=== PATIENT | female | born 1945 | race Caucasian/White ===

== ENCOUNTER 2016-08-20 13:52 | Inpatient (IN) | payer MEDICARE, OTHER ==
[~2016-08-20] VITALS: Ht 162.5 cm; Wt 93.4 kg
--- NOTE | ~2016-08-20 | CON ---
[place], [place] REPORT OF CONSULTATION NAME: RAMON VACA [facility] #: [id number] UNIT #: [id number] ROOM: 426 DOCTOR: WILLAM GIBSON DPM BIRTHDATE: [birth year] DOS: 08/21/2016 SUBJECTIVE: The patient presents a 71-year-old female with chief complaint of an ulcer to the medial left heel. The patient had been seen by Dr. Perez previously. The patient has had also seen the wound care center previously, has had the ulceration for an extended amount of time. PAST MEDICAL HISTORY: Type 2 diabetes, essential hypertension, hyperlipidemia. PAST SURGICAL HISTORY: Vascular Surgery, history of cholecystectomy, hysterectomy, tubal ligation. SOCIAL HISTORY: Nonsmoker. Denies alcohol or illicit drug use. FAMILY HISTORY: Mother of metastatic bone cancer at age 62. Father at age 82 of vascular disease. ALLERGIES: CEPHALEXIN. PHYSICAL EXAMINATION: EXTREMITIES: Lower extremity examination: Pedal pulses diminished bilateral lower extremity. Decreased hair growth bilateral. Decreased epicritic sensations. There is painful ulceration to the medial left ankle and heel. There are no signs of acute abscess. The ulceration is full thickness through subcutaneous tissue level. There is no sign of sinus tract or abscess identified. DIAGNOSTIC DATA: Radiographs were unremarkable for osseous erosion. ASSESSMENT: Ulceration, medial left ankle and heel, diabetes type 2, peripheral vascular disease, venous insufficiency. PLAN: Evaluation and management, discussed the case with the patient and her family member who ordered venous Doppler of the lower extremity along with arterial Doppler of both lower extremities. Ordered Bactroban dressing to be applied daily and we will reassess the patient tomorrow for followup. WILLAM GIBSON DPM CM:CONSTR:REPORT OF CONSULTATION 1223 08/22/16 0034 interface
--- NOTE | ~2016-08-20 | PR ---
[place], [place] PROGRESS NOTE NAME: RAMON VACA [facility] #: [id number] UNIT #: [id number] ROOM: 426 DOCTOR: TAY DELATORRE DPM BIRTHDATE: [birth year] DOS: 08/22/2016 SUBJECTIVE: This patient is seen for followup of a left medial heel ulcer. She again sees Dr. Perez as an outpatient. She states she has some discomfort in the area. The patient admits to being diabetic. OBJECTIVE: DP pedal pulses palpable, PT pedal pulses barely palpable. Decreased hair growth noted. There is painful ulceration noted in medial left ankle, heel area, that is fairly large in diameter, it is full thickness into subcutaneous tissue. No drainage or malodor. No surrounding erythema or increased temperature. No signs of abscess or significant cellulitis. Venous Doppler was negative for DVT. X-rays are negative. ASSESSMENT: Chronic ulceration of medial left ankle and heel, type 2 diabetes, venous insufficiency. PLAN: Evaluation and management. Continue with wound care to the area. The wound is not infected and is chronic in nature. From a Podiatry standpoint, she can be discharged and follow up with Dr. Perez as an outpatient. I discussed with her. We would be happy to see her as well as an outpatient if she chose to follow up with us. If she is still here tomorrow, we will reevaluate her and if not, we will see her possibly as an outpatient. TAY DELATORRE DPM CM:PNTRANS 09 02 TAY DELATORRE DPM 08/22/161956 interface
[~2016-08-20 13:52] MED LIST: ACTOS45 MG PO; ACULAR0.4 ML OPH; GLIMEPIRIDE4 MG PO; HYDR25T PO; JANUMET 500 MG-1 TA1 PO; MOTRIN800 MG PO; OCUFLOX 0.3% 5 M5 ML OPH; OXAPROZIN600 MG PO; PRED FORTE 1 ML1 ML OP; QUINAPRIL40 MG PO; SIMVASTATIN40 MG PO
[2016-08-20 13:57] VITALS: BP 170/80
[2016-08-20] MEDS ORDERED: VITAMIN D50000 I3 PO (14:05)
[2016-08-20] MEDS ORDERED: IRON90 MG PO (14:05)
[2016-08-20] MEDS ORDERED: HYDROCODONE BIT1 T11 PO (14:07)
[2016-08-20 14:58] LABS: BASO % 0.5 % (0.0-1.0); EOS # 0.1 10*3/uL (0.0-0.4); EOS % 0.6 % (1.0-4.0); HEMATOCRIT 34.8 % (37.0-47.0); HEMOGLOBIN 11.5 g/dl (12.0-16.0); LYMPH # 1.4 10*3/uL (1.3-4.4); LYMPH % 16.4 % (27.0-41.0); MEAN CELL VOLUME 99.4 fl (81.0-99.0); MEAN CORPUSCULAR HGB 32.9 pg (27.0-31.0); MEAN PLATELET VOLUME 9.6 fl (9.6-12.3); MONO # 0.6 10*3/uL (0.1-1.0); MONO % 7.1 % (3.0-9.0); NEUT # 6.5 10*3/uL (2.3-7.9); NEUT % 75.1 % (47.0-73.0); PLATELET COUNT AUTOMATED 195 10*3/uL (130-400); RED CELL DISTRI WIDTH 15.3 % (0-14.5); WHITE BLOOD COUNT 8.7 10*3/uL (4.8-10.8)
[2016-08-20 15:10] LABS: ALBUMIN 3.5 gm/dl (3.1-4.5); BILIRUBIN, TOTAL 0.4 mg/dl (0.2-1.0); MAGNESIUM 1.6 mg/dL (1.5-2.1); POTASSIUM 4.1 mmol/L (3.5-5.1); TOTAL PROTEIN 7.6 gm/dL (6.4-8.2)
[2016-08-20 15:50] LABS: BILIRUBIN NEGATIVE (NEGATIVE); BLOOD 1+ (NEGATIVE); CLARITY CLOUDY (CLEAR); GLUCOSE NEGATIVE (NEGATIVE); KETONE TRACE (NEGATIVE); LEUKO ESTERASE 2+ (NEGATIVE); NITRITE NEGATIVE (NEGATIVE); PROTEIN 2+ (NEGATIVE); SPECIFIC GRAVITY 1.025 (1.005-1.030); UROBILINOGEN 0.2 E.U./dl (0.2-1.0)
[2016-08-20 16:00] VITALS: BP 152/64
[2016-08-20 16:00] LABS: COLOR YELLOW (YELLOW)
[2016-08-20 16:02] LABS: BACTERIA 4+; EPITHELIAL CELLS 15-20; RBC 21-30 rbc/hpf (0-2); WBC TNTC wbc/hpf (0-5)
[2016-08-20 16:03] LABS: URINE REFLEX COMMENT YES (NO)
[2016-08-20 17:00] VITALS: BP 148/61
[2016-08-20 18:00] VITALS: BP 153/92
[2016-08-20 18:06] LABS: CKMB 3.2 ng/ml (0.5-3.6); TROPONIN I 0.021 ng/ml (<0.045)
[2016-08-20 20:00] VITALS: BP 142/78
[2016-08-21] VITALS: BP 132/50
[2016-08-21 00:57] LABS: CKMB 4.9 ng/ml (0.5-3.6); TROPONIN I 0.031 ng/ml (<0.045)
[2016-08-21 06:20] LABS: BASO # 0.1 10*3/uL (0.0-0.1); BASO % 0.8 % (0.0-1.0); EOS # 0.1 10*3/uL (0.0-0.4); HEMATOCRIT 29.1 % (37.0-47.0); LYMPH # 1.6 10*3/uL (1.3-4.4); MEAN CELL VOLUME 100.7 fl (81.0-99.0); MEAN CORPUSCULAR HGB 31.8 pg (27.0-31.0); MEAN CORPUSCULAR HGB CONC 31.6 g/dl (33.0-37.0); MEAN PLATELET VOLUME 10.1 fl (9.6-12.3); MONO # 0.6 10*3/uL (0.1-1.0); MONO % 10.2 % (3.0-9.0); NEUT # 3.9 10*3/uL (2.3-7.9); NEUT % 61.7 % (47.0-73.0); PLATELET COUNT AUTOMATED 167 10*3/uL (130-400); RED BLOOD COUNT 2.89 10*6/uL (4.10-5.10); RED CELL DISTRI WIDTH 15.3 % (0-14.5); WHITE BLOOD COUNT 6.3 10*3/uL (4.8-10.8)
[2016-08-21 06:36] LABS: TROPONIN I 0.022 ng/ml (<0.045)
[2016-08-21 06:39] LABS: HEMOGLOBIN 9.2 g/dl (12.0-16.0)
[2016-08-21 06:40] LABS: CKMB 5.2 ng/ml (0.5-3.6)
[2016-08-21 06:56] LABS: ALBUMIN 2.6 gm/dl (3.1-4.5); BILIRUBIN, TOTAL 0.4 mg/dl (0.2-1.0); FREE T4 0.77 ng/dl (0.76-1.46); MAGNESIUM 1.5 mg/dL (1.5-2.1); PHOSPHOROUS 3.4 mg/dL (2.5-4.9); POTASSIUM 3.7 mmol/L (3.5-5.1); TOTAL PROTEIN 5.8 gm/dL (6.4-8.2)
[2016-08-21 06:59] LABS: INTERNATIONAL NORM RATIO 1.2 (2.0-3.5); PROTHROMBIN TIME 12.4 SECONDS (9.0-12.4)
[2016-08-21 07:02] LABS: THYROID STIM HORMONE (HS) 0.62 uIU/ml (0.358-4.75)
[2016-08-21 07:05] LABS: VITAMIN D, 25-HYDROXY 40.9 ng/mL (30-100)
[2016-08-21 07:06] LABS: FOLIC ACID 6.9 ng/mL (>5.38)
[2016-08-21 08:00] VITALS: BP 148/74; BP 158/74
[2016-08-21 12:00] VITALS: BP 148/47
[2016-08-21 16:00] VITALS: BP 158/52
[2016-08-21 20:00] VITALS: BP 150/55
[2016-08-22] VITALS: BP 145/60
[2016-08-22 04:00] VITALS: BP 144/68
[2016-08-22 06:43] LABS: BASO % 0.7 % (0.0-1.0); EOS # 0.1 10*3/uL (0.0-0.4); EOS % 1.6 % (1.0-4.0); HEMATOCRIT 29.2 % (37.0-47.0); HEMOGLOBIN 9.3 g/dl (12.0-16.0); LYMPH # 1.5 10*3/uL (1.3-4.4); LYMPH % 27.2 % (27.0-41.0); MEAN CORPUSCULAR HGB 32.2 pg (27.0-31.0); MEAN CORPUSCULAR HGB CONC 31.8 g/dl (33.0-37.0); MEAN PLATELET VOLUME 9.5 fl (9.6-12.3); MONO # 0.6 10*3/uL (0.1-1.0); MONO % 11.1 % (3.0-9.0); NEUT # 3.3 10*3/uL (2.3-7.9); PLATELET COUNT AUTOMATED 173 10*3/uL (130-400); RED BLOOD COUNT 2.89 10*6/uL (4.10-5.10); RED CELL DISTRI WIDTH 15.3 % (0-14.5); WHITE BLOOD COUNT 5.5 10*3/uL (4.8-10.8)
[2016-08-22 07:14] LABS: CARBON DIOXIDE 18 mmol/L (21-32); CHLORIDE 119 mmol/L (98-107); EST GLOM FILT AFRICAN AMERICAN > 60 ml/min; GLUCOSE 87 mg/dL (65-99); SODIUM 147 mmol/L (136-145)
[2016-08-22 07:15] LABS: BUN 20 mg/dl (7-24)
[2016-08-22 08:00] VITALS: BP 142/70
[2016-08-22 12:00] VITALS: BP 163/66
[2016-08-22 16:09] VITALS: BP 135/84
[2016-08-22 19:51] VITALS: BP 143/64
[2016-08-23] VITALS: BP 152/61
[2016-08-23 07:36] LABS: BUN 14 mg/dl (7-24); CARBON DIOXIDE 17 mmol/L (21-32); CHLORIDE 117 mmol/L (98-107); GLUCOSE 96 mg/dL (65-99); POTASSIUM 3.7 mmol/L (3.5-5.1); SODIUM 146 mmol/L (136-145)
[2016-08-23 07:38] LABS: EST GLOM FILT AFRICAN AMERICAN > 60 ml/min
[2016-08-23 08:00] VITALS: BP 186/56
[2016-08-23 12:00] VITALS: BP 178/64
[2016-08-23] MEDS ORDERED: BACTROBAN OINT0.9 GM T (14:10)
[2016-08-23] MEDS ORDERED: CIPRO500 MG PO (14:10)
== END 2016-08-23 16:10 | disposition home or self-care (01) | DRG 871 ==
LOC: ED 13:52 → 4E 15:35 → EDHOLD 15:35 → 4E 16:07
PROVIDERS: Hospitalist; Internal Medicine; Nurse Practitioner Family
DX: A41.9 Sepsis, unspecified organism (principal); N17.0 Acute kidney failure with tubular necrosis; E43 Unspecified severe protein-calorie malnutrition; E11.65 Type 2 diabetes mellitus with hyperglycemia; E11.621 Type 2 diabetes mellitus with foot ulcer; E11.51 Type 2 diabetes mellitus with diabetic peripheral angiopathy without gangrene; E86.0 Dehydration; N30.01 Acute cystitis with hematuria; L97.329 Non-pressure chronic ulcer of left ankle with unspecified severity; L97.429 Non-pressure chronic ulcer of left heel and midfoot with unspecified severity; E78.5 Hyperlipidemia, unspecified; I10 Essential (primary) hypertension; B96.5 Pseudomonas (aeruginosa) (mallei) (pseudomallei) as the cause of diseases classified elsewhere; B96.1 Klebsiella pneumoniae [K. pneumoniae] as the cause of diseases classified elsewhere; I87.2 Venous insufficiency (chronic) (peripheral); Z79.4 Long term (current) use of insulin; Z68.35 Body mass index [BMI] 35.0-35.9, adult; Z90.49 Acquired absence of other specified parts of digestive tract; Z90.710 Acquired absence of both cervix and uterus; Z98.51 Tubal ligation status; Z88.1 Allergy status to other antibiotic agents; Z80.8 Family history of malignant neoplasm of other organs or systems; Z82.49 Family history of ischemic heart disease and other diseases of the circulatory system

== ENCOUNTER → 2016-12-15 | Outpatient (CLI) | payer MEDICARE, OTHER ==
[~2016-12-15] MED LIST changes: +BACTROBAN OINT0.9 GM T; +CIPRO500 MG PO; +HYDROCODONE BIT1 T11 PO; +IRON90 MG PO; +VITAMIN D50000 I3 PO
== END | disposition home or self-care (01) ==
LOC: MAMMO 12:26
DX: Z12.31 Encounter for screening mammogram for malignant neoplasm of breast (principal)

== ENCOUNTER 2017-01-01 12:55 | Inpatient (IN) | payer MEDICARE, OTHER ==
[~2017-01-01] VITALS: Ht 162.5 cm; Wt 92.5 kg
--- NOTE | ~2017-01-01 | PR ---
[place], [place] PROGRESS NOTE NAME: RAMON VACA UNIT #: [id number] ROOM: 519 DOCTOR: KEVIN MALDONADO MD BIRTHDATE: [birth year] DOS: 01/03/2017 SUBJECTIVE: The patient complains of a lot of pain. She just went to the bathroom. OBJECTIVE: VITAL SIGNS: Graphic trend shows that she is afebrile. Blood pressure is 124/44, pulse of 87, respirations 18, temperature 97.3. LUNGS: Diminished breath sounds. No wheezes heard. HEART: Regular. ABDOMEN: Obese. EXTREMITIES: Without any edema. I did not open the dressings today. Wound culture showing multiple different heavy gram-negative bacteria. Final sensitivities are not available yet. Arterial Doppler showed mild atherosclerosis of superficial femoral artery and ____ dorsalis pedis. MRI of the ankle showed evidence of an ulcer on the medial malleolus with possibility of osteomyelitis of the navicular bone with evidence of tenosynovitis and possible superficial thrombophlebitis, plantar fasciitis, Achilles tendinosis and evidence of small vessel disease from diabetes. ASSESSMENT AND PLAN: 1. Chronic venous stasis with venous ulcer which is poorly healing now infected with multiple bacteria on vancomycin and Levaquin. Await the culture report and adjust antibiotics. 2. Severe peripheral vascular disease with evidence of osteomyelitis. The patient is being placed on Neurontin for the neuropathy. 3. Peripheral vascular disease. Angiogram was done earlier this year as per patient by Dr. Boyer at [place]. The plan is to send her to see Dr. Koby Tristan in [facility] on Thursday morning. KEVIN MALDONADO MD CM:PNTRANS [id number] KEVIN MALDONADO MD 01/03/17 1047 interface
--- NOTE | ~2017-01-01 | PR ---
[place], [place] PROGRESS NOTE NAME: RAMON VACA UNIT #: [id number] ROOM: 519 DOCTOR: KEVIN MALDONADO MD BIRTHDATE: [birth year] DOS: 01/05/2017 SUBJECTIVE: The patient states that she feels weird this morning. She did sleep well, does not have any new complaints of chest pains or palpitations. No fever or chills. OBJECTIVE: VITAL SIGNS: Graphic trend shows a pressure of 158/62, pulse of 99, respirations 20, temperature 97.3. LUNGS: Diminished breath sounds, clear. HEART: Regular. ABDOMEN: Obese, soft. EXTREMITIES: Decreased edema and redness. The wound is pretty much the same. ASSESSMENT AND PLAN: 1. Venous stasis with the chronic venous ulcer of the left leg with wound culture showing Klebsiella, Pseudomonas and Escherichia coli, which has been treated appropriately with meropenem. The patient will have a PICC line today and hopefully discharge today after insurance approval with IV antibiotics. 2. Osteomyelitis of the navicular bone again on IV antibiotics as an outpatient for 6 weeks. Discussed with the patient. 3. Diabetes mellitus with diabetic neuropathy. Lyrica was given. This may be causing her "weird" feeling. We will decrease the dosage to 75 at bedtime. I will also speak to the vascular surgeon that she plans to see at [place] today. Arteriogram done in [facility] in 08/2016 shows absolutely no vascular disease as also this is purely a venous problem. KEVIN MALDONADO MD CM:PNTRANS 08 [id number] KEVIN MALDONADO MD 01/05/17 0939 interface
--- NOTE | ~2017-01-01 | WRIGHTHP ---
[place], [place] PATIENT HISTORY AND PHYSICAL EXAM [id number] UN[facility] #: [id number] ROOM: [facility] DOCTOR: KEVIN MALDONADO MD BIRTHDATE: [birth year] DOS: 01/01/2017 HISTORY OF PRESENT ILLNESS: This patient is not known to me. The patient comes in to the Emergency Room with complaints of pain in the left ankle. The patient says that she has had a chronic wound in the left ankle for many years now. It keeps opening and closing, and has seen Dr. Boyer multiple times over the last few years and has had multiple varicose vein surgeries. The last few weeks, the pain has gotten worse and the wound has opened up and it is not healing now. She was prior to this admission on Regranex cream which helped almost close the wound up. Regranex was discontinued by Dr. Boyer recently and since then, the wound has increasingly been draining and painful and not healing. She saw Dr. Sprague yesterday, who advised her to come into the Emergency Room. She denies having any chest pains, palpitations or shortness of breath. Denies having any fever or chills, any abdominal pain, nausea, any emesis. She is in significant amount of pain. PAST MEDICAL HISTORY: Significant for: 1. Last hospitalization in 07/2016 with nonhealing wound of the lower extremity. 2. Hypertension. 3. Diabetes mellitus, non-insulin dependent. 4. Mixed hyperlipidemia. MEDICATIONS: Medications that she is on are glimepiride, vitamin D, Lasix, Prevacid, oxaprozin, pioglitazone, quinapril, simvastatin, and Janumet. SOCIAL HISTORY: Nonsmoker, does not use any alcohol. PHYSICAL EXAMINATION: GENERAL: She is awake and alert and oriented. VITAL SIGNS: Graphic trend shows a pressure of 144/46, pulse of 76, respirations 20, temperature 97.4. LUNGS: Diminished breath sounds. HEART: Regular. ABDOMEN: Obese, soft, nontender. EXTREMITIES: Right leg within normal limits. Left, large wound on the medial malleolus area, which is at least stage 3 with a lot of yellow drainage with early exposure of tendons. LABS: ESR is 44. Comprehensive glucose 186, BUN 30, creatinine 1.53. GFR 34. Electrolytes normal. WBC count is 8.9, hemoglobin 10.8, hematocrit 33.8, platelets 232. ASSESSMENT AND PLAN: 1. Venous stasis dermatitis with a venous ulcer, which is poorly healing, infected. I will do an MRI and an arterial Doppler to rule out osteomyelitis and peripheral vascular disease. The patient has been placed on vancomycin and Levaquin. Cultures have been done, awaiting the reports to further adjust medications. A consultation with Podiatry as well as Orthopedics has been obtained. Regranex cream has been started. Discussed with nursing staff as [place], [place] PATIENT HISTORY AND PHYSICAL EXAM NAME: RAMON VACA UNIT #: [id number] ROOM: [facility] DOCTOR: KEVIN MALDONADO MD BIRTHDATE: [birth year] well as wound care. 2. Type 2 diabetes mellitus, non-insulin dependent. Blood sugars are controlled. We will hold off on metformin since the GFR is in the 30s. We will continue Amaryl for right now. 3. Benign hypertension, controlled. We could consist adding Pletal for peripheral vascular disease, but I will wait to see what the ultrasound shows before starting on new medication. Discussed with the patient in detail. IV Dilaudid was started for pain control. KEVIN MALDONADO MD CM:HISPHYS:PATIENT HISTORY AND PHYSICAL EXAMINATION 0938 KEVIN MALDONADO MD 01/02/17 0939 interface
--- NOTE | ~2017-01-01 | CON ---
[place], [place] REPORT OF CONSULTATION NAME: RAMON VACA UNIT #: [id number] ROOM: 519 DOCTOR: SOL MclaughlinJERRICA BIRTHDATE: [birth year] DOS: 01/05/2017 WOUND CARE CONSULTATION HISTORY OF PRESENT ILLNESS: This is a 71-year-old female who has had a chronic leg ulcer for quite some time now, possibly for up to 2 years, but has actually had it prior to that as well where apparently the wound did close at one point. In any case, she had been to the Wound Clinic in the past, but has not been seen in our wound center for over a year. The last time she was seen in our wound center, the wound was quite small and had been improving with wound care. However, the patient never did follow back up with us. Her wound was measuring only 1 cm x 0.6 x 0.1, it was quite small. In any case, it looks like she had been following up with Dr. Boyer who has seen her for it sounds like venous ablation venous surgeries in the past as well as Dr. Perez according to the records. Also Dr. Boyer had been using Regranex recently and the wound just continued to progress. Apparently, according to the patient, it was doing better until sometime in the winter when she fell and the wound just got really big after that. She had been seeing Dr. Boyer and underwent arteriogram, which apparently according to the results that I could see, it looks like everything was good and appeared to be normal, up until the calf. It does not say that apparently there was poor visualization of the dye distal to that area, but what was identified appeared to be within normal limits, that was done by Dr. Manjit Boyer on 09/08/2016. The patient states, however, he wanted to repeat some vascular procedures again and she is not sure if it was the angiogram or venous study, but in any case, she does not wish to follow up with him again. She has an appointment to see another vascular specialist in [place]. Apparently that appointment was today, but the patient due to severe pain and worsening of the wound was admitted to the Emergency Room Department over the weekend. The patient did have a culture done, which was growing multiple organisms as well. She states that she does not recall a biopsy ____ being done of the wound. She says overall the wound is feeling better than when she first came in. PAST MEDICAL HISTORY: Significant for; she was admitted in July for a nonhealing wound of the lower extremity, hypertension, diabetes non-insulin dependent, hyperlipidemia, obesity, peripheral arterial disease, sepsis, tachycardia, UTI. PAST SURGICAL HISTORY: History of vascular surgery, cholecystectomy, hysterectomy and tubal ligation. MEDICATIONS: She is currently taking are Lyrica 75 mg p.o. at bedtime, Polysporin has been ordered for the wound, meropenem 1 gram IV q.8h., Lasix 40 p.o. daily, lisinopril 40 p.o. daily, Novolin sliding scale, Amaryl 4 mg p.o. b.i.d., [place] one tablet q.4h. p.r.n., Zocor 40 mg p.o. at bedtime. SOCIAL HISTORY: The patient is a nonsmoker, does not drink. ALLERGIES: CEPHALEXIN. [place], [place] REPORT OF CONSULTATION NAME: RAMON VACA [facility] UNIT #: [id number] ROOM: [facility] DOCTOR: JERRICA HORTON M.D. BIRTHDATE: [birth year] FAMILY HISTORY: Significant for cancer, metastatic in the mother and vascular disease in the father. REVIEW OF SYSTEMS: Other than pain at the wound, which she says is better, it got to the point where she really cannot walk. She denies any fevers or chills. There is quite a bit of drainage. No nausea or vomiting or diarrhea. She states that she felt like she could not focus very well after she was given some pain medication and states that she will be going to a alf facility for just a few days for short term. PHYSICAL EXAMINATION: VITAL SIGNS: Temperature is 98.1, pulse of 90, respirations 18, blood pressure is 161/51. GENERAL: This is an elderly female who appears well developed, well nourished, in no acute distress, pleasant and cooperative to examination. HEENT: Oropharynx is clear. Extraocular movements are intact. NECK: Supple. LUNGS: Clear to auscultation. CARDIOVASCULAR: S1, S2 regular rate and rhythm. ABDOMEN: Soft and nontender. EXTREMITIES: She has varicosities noted on the right lower extremity. She has a very large wound located in the left medial ankle that is measuring approximately 4.5 cm x 6 x 0.5 cm in depth. There does not appear to be any tendon exposure. There is a large amount of fibrin and slough, although there seems to be somewhat less amounts of fibrin slough than when originally admitted. There is some periwound erythema and it is tender around the periwound. There is also some maceration noted. Her dorsalis pedis pulses palpable. Her toes are warm. She has got good capillary refill, you cannot feel her posterior tibial due to where the wound is located. Her wound culture grew Klebsiella, Pseudomonas and E. coli, heavy growth, many white blood cells are noted as well, all those cultures are sensitive to meropenem, which she is on. LABORATORY DATA: Her white count was 5.6 and it is now 8.3, hemoglobin is low at 9.4 with increased MCV and MCH, and platelets are 205. Chem-7 shows a bicarbonate of 13, BUN of 45 and a creatinine of 1.63. Glucose was initially 186, but then has been now documented at 66 and 92. LFTs are okay. Albumin is 3.5. She did have an MRI done of the ankle, which shows evidence of an overlying medial aspect of the foot ulcer. There was some marrow edema noted around the navicular body raising the possibility of osteomyelitis. There is mild posterior tendinosis and tenosynovitis. There is also some possible superficial thrombophlebitis noted as well in the medial aspect of the ankle noted. Ankle x-ray shows soft tissue defect. Chest x-ray shows no acute disease. ASSESSMENT AND PLAN: Nonhealing ulceration of the left lower extremity. Clinically, seems to be consistent with a venous leg ulcer. At this point, I agree with Oracio. I would use a different topical antibiotic for now as [place], [place] REPORT OF CONSULTATION NAME: RAMON VACA UNIT #: [id number] ROOM: [facility] DOCTOR: JERRICA HORTON M.D. BIRTHDATE: [birth year] bacitracin and polymyxin can cause severe sensitivities especially in patients with venous ulcerations, so I would discontinue that and I went ahead and added gentamicin topically as well as continue with the Maxorb Ag. I would definitely do that and have her use Tubigrip for now for edema control, but at some point, I think we should consider formal compression wrap, but it may need to be changed a little more often than once a week and she should definitely follow up consistently with wound care. She says she wants to come back to the Wound Clinic here, so we would be happy to see her. I did explain that this will likely need a punch biopsy once the infection has calmed down a bit just to rule out any other possibilities. She also has a followup with her vascular surgeon, which I think is a good idea to follow up with the new vascular doctor that she was going to see as a second opinion. Discharge orders were written for. Hopefully, the patient will follow up in the Wound Care Clinic later this week or early next week. I agree with IV antibiotics as well. JERRICA HORTON MD CM:CONSTR:REPORT OF CONSULTATION 1424 01/05/17 1602 interface
--- NOTE | ~2017-01-01 | CON ---
[place], [place] REPORT OF CONSULTATION [id number] #: [id number] ROOM: 519 DOCTOR: NANDINI REDDYTAY BIRTHDATE: [birth year] DOS: 01/02/2017 SUBJECTIVE: The patient is seen as consulted for evaluation of a nonhealing wound on the left medial ankle. The patient states she has had the wound at least since June and it has been getting worse progressively, especially in the last several weeks. She has seen Dr. Boyer in the past and according to the patient, she has had an arteriogram done, but he wanted to repeat this because he felt that the wound was not healing. She never did have that test done. She is scheduled to see Dr. Tristan in [place] on Thursday, but she wound up coming to the hospital because of significant pain in the leg, foot and ankle. She states she gets pain in bed at night to the point where she has to get up and stand up and walk a bit to make the pain go away. She does get some cramping with walking, but not significantly. She just states that the wound is extremely painful and not getting any better. She does say it was biopsied in the past to rule out skin cancer and that was negative. Overall, the wound continues to progressively get worse. PAST MEDICAL HISTORY: Positive for diabetes mellitus, hyperlipidemia, hypertension, history of nonhealing wound of the left lower extremity. ALLERGIES: KEFLEX. MEDICATIONS: Include vancomycin, Zestril, Lasix, Dilaudid, Novolin, Amaryl, [place], Zocor. OBJECTIVE: Upon lower extremity physical examination, DP pedal pulse is palpable, but I cannot palpate a PT pedal pulse on the left side because of the significantly large wound. The wound is probably 7 cm in diameter at the left medial ankle with significant slough and fibrous nonhealing tissue. Minimal necrotic tissue was seen. There is some localized erythema around the wound probably about 2-3 cm. There is no purulent drainage, there is no malodor at this time. It appears to be chronic nonhealing wound, really cannot probe the wound very much because it is extremely painful, but it does appear to have some depth of about 0.5 cm. No fluctuance or signs of abscess. No erythema on the lateral side of the ankle. Overall, chronic large nonhealing wound. She did have an ankle x-ray which showed the soft tissue defect but negative for osteomyelitis. She had a lower extremity ultrasound, which showed mild atherosclerosis of the right superficial femoral artery and left dorsalis pedis artery. She had one done in July and this showed PAD. ASSESSMENT: Diabetes mellitus with large nonhealing painful wound on the left medial ankle, history of peripheral arterial disease. PLAN: Consult was performed. I reviewed her studies and I reviewed her studies from back in July. I discussed with the patient she has a large chronic nonhealing wound that is worsening. I believe she needs a CTA done to evaluate for any occlusion. I note she has a palpable dorsalis pedis pulse, but she still has a very large nonhealing wound. I would not recommend any aggressive wound care until she has the arteriogram done and if she has an occlusion, then [place], [place] REPORT OF CONSULTATION NAME: RAMON VACA UNIT #: [id number] ROOM: 519 DOCTOR: TAY DELATORRE DPM BIRTHDATE: [birth year] get this addressed. I discussed with her this is a limb threatening ulcer. If it got abscessed or infected or became larger, it will be hard to salvage the leg. My recommendation would be to get her to a facility near to our hospital where they can do an arteriogram and do a vascular intervention if needed; I think this should be done sooner than later. I will discuss the case with Dr. Sparrow. I would not recommend any Regranex because the wound does not warrant Regranex because there is a lot of slough and fibrous tissue in the wound as well as she has PAD. I would just recommend Adaptic and dry dressing to the area. I will speak with Dr. Sparrow about a possible transfer to have an arteriogram done to have vascular intervention if needed. This was all discussed with the patient. She will also discuss it with her daughter and I will check back later to see what her decision is. She was given the opportunity to ask questions and all questions were answered. Thank you for the consultation. TAY DELATORRE DPM CM:CONSTR:REPORT OF CONSULTATION 1259 01/03/17 0012 interface
--- NOTE | ~2017-01-01 | EKG ---
[place], [place] ELECTROCARDIOGRAM REPORT NAME: RAMON VACA UNIT #: [id number] ROOM: [facility] DOCTOR: SCOTTIE RUSS MD BIRTHDATE: [birth year] DOS: 01/01/2017 TIME: 1328 hours. Normal sinus rhythm at 92 beats per minute. Complete left bundle-branch block. An abnormal ECG. No previous tracing is available for comparison. SCOTTIE RUSS MD CM:EKGRPT:ELECTROCARDIOGRAM REPORT 1729 13 SCOTTIE RUSS MD
--- NOTE | ~2017-01-01 | PR ---
[place], [place] PROGRESS NOTE NAME: RAMON VACA UNIT #: [id number] ROOM: 519 DOCTOR: KEVIN MALDONADO MD BIRTHDATE: [birth year] DOS: SUBJECTIVE: The patient is feeling much better. Her pain is much better controlled after the Lyrica was started, she slept well. OBJECTIVE: VITAL SIGNS: Blood pressure is 157/52, pulse of 92, respirations 20, temperature 97.9. LUNGS: Clear. HEART: Regular. ABDOMEN: Obese, soft. EXTREMITIES: Without decreasing edema. LABORATORY DATA: WBC count is 8.3, hemoglobin 9.4, hematocrit 29.5, platelets 205. BMP not available yet. Blood culture shows no bacterial grown. Wound culture shows Klebsiella, Pseudomonas and E. coli, which is all sensitive to cephalosporins, Levaquin, ____ and penicillin. ASSESSMENT AND PLAN: 1. Poorly healing venous stasis lesion on the medial malleolus of the left leg with evidence of tendinitis and osteomyelitis. The patient is placed on IV meropenem today and PICC line will be placed. Arrangements will be made for her to continue to receive this as an outpatient. 2. Severe peripheral vascular disease, had an angiogram as an outpatient at [facility] early this year, we will get a copy of it. She has an appointment with vascular surgery tomorrow. 3. Type 2 diabetes mellitus, non-insulin dependent. Blood sugars are controlled on the current dose of medicines and awaiting the kidney functions this morning. KEVIN MALDONADO MD CM:PNTRANS 0733 [id number] KEVIN MALDONADO MD 01/04/17 2253 interface
--- NOTE | ~2017-01-01 | DS ---
[place], [place] DISCHARGE SUMMARY [id number] UN[facility] #: [id number] ROOM: 519 DOCTOR: KEVIN MALDONADO MD BIRTHDATE: [birth year] DOS: 01/05/2017 DIAGNOSES: 1. Chronic venous ulcer, left with a wound culture showing Pseudomonas aeruginosa, Escherichia coli, and Klebsiella pneumoniae with negative blood cultures, normal lactic acid. 2. 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 3. Status post aortogram at [facility] in 08/2016 showing normal arteries without any disease at all. 4. 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 5. Benign hypertension. HOSPITAL COURSE: The patient is 71 years old, has had multiple venous stripping for varicose surgeries, has had a chronic venous stasis ulcer on the left leg medial malleolus for quite some time. This wound has gotten worse in the last few days, so she decided to come into the Emergency Room. Please refer H and P for further details. The wound was cultured, blood cultures were ordered, ESR, CRP was performed, arterial Doppler, and MRI was ordered. MRI showed osteomyelitis of the navicular bone, arterial Doppler showed minimal peripheral vascular disease. Aortogram obtained at [facility] in August was obtained, this showed no disease at all of any of the arteries involved of the left lower leg. The patient continued to complain of severe pain in the leg. Lyrica was started along with pain medications. Lyrica did make her slightly confused, so the dosage has been cut down to 75 mg daily, only at night. The patient's pain is much better controlled. The wound looks much better than when she originally arrived, the less drainage. Wound care has been started with Polysporin and TheraHoney with Maxorb dressings. Visiting nurses will need to see her at home. She will have a PICC line placed and IV meropenem will be continued as an outpatient. DISCHARGE MEDICATIONS: Lyrica 75 mg at bedtime, meropenem 1 g IV b.i.d., pioglitazone 45 mg daily, simvastatin 40 daily, glimepiride 4 b.i.d., quinapril 40 daily, vitamin D 50,000 units once a week, iron 324 daily, Lasix 40 daily, Prevacid 15 daily, Proventil 1 puff q.i.d. p.r.n. Meds that were discontinued were oxaprozin and Janumet. The patient to follow with Dr. Sprague as well as Dr. Tristan as an outpatient. I will speak to Dr. Tristan today before the patient is discharged. [place], [place] DISCHARGE SUMMARY NAME: RAMON VACA UNIT #: [id number] ROOM: [facility] DOCTOR: KEVIN MALDONADO MD BIRTHDATE: [birth year] KEVIN MALDONADO MD CM:DISCHARG [id number] KEVIN MALDONADO MD 01/05/17 1350 interface
[2017-01-01 13:02] VITALS: BP 166/67
[2017-01-01 13:47] LABS: BASO % 0.2 % (0.0-1.0); EOS % 0.2 % (1.0-4.0); HEMATOCRIT 33.8 % (37.0-47.0); HEMOGLOBIN 10.8 g/dl (12.0-16.0); IG # 0.1 10*3/uL (0.0-0.1); LYMPH # 1.4 10*3/uL (1.3-4.4); LYMPH % 15.5 % (27.0-41.0); MEAN CELL VOLUME 101.5 fl (81.0-99.0); MEAN CORPUSCULAR HGB 32.4 pg (27.0-31.0); MEAN PLATELET VOLUME 9.4 fl (9.6-12.3); MONO # 0.7 10*3/uL (0.1-1.0); MONO % 7.7 % (3.0-9.0); NEUT # 6.8 10*3/uL (2.3-7.9); NEUT % 75.8 % (47.0-73.0); PLATELET COUNT AUTOMATED 232 10*3/uL (130-400); RED BLOOD COUNT 3.33 10*6/uL (4.10-5.10); RED CELL DISTRI WIDTH 16.7 % (0-14.5); WHITE BLOOD COUNT 8.9 10*3/uL (4.8-10.8)
[2017-01-01 14:01] LABS: ALBUMIN 3.5 gm/dl (3.1-4.5); ALKALINE PHOSPHATASE 68 U/L (45-117); BILIRUBIN, TOTAL 0.4 mg/dl (0.2-1.0); BUN 30 mg/dl (7-24); CARBON DIOXIDE 12 mmol/L (21-32); CHLORIDE 118 mmol/L (98-107); EST GLOM FILT AFRICAN AMERICAN 41 ml/min; GLUCOSE 186 mg/dL (65-99); SGOT/AST 14 IU/L (3-35); SGPT/ALT 16 U/L (12-78); SODIUM 140 mmol/L (136-145); TOTAL PROTEIN 7.8 gm/dL (6.4-8.2)
[2017-01-01 14:02] LABS: TROPONIN I 0.017 ng/ml (<0.045)
[2017-01-01 14:05] LABS: C-REACTIVE PROTEIN < 0.29 MG/DL (0-0.3)
[2017-01-01 15:00] VITALS: BP 148/72
[2017-01-01 17:12] VITALS: BP 154/54
[2017-01-01] MEDS ORDERED: LASIX40 MG PO (18:19)
[2017-01-01] MEDS ORDERED: PROVENTIL0.09 MG/A1 INH (18:20)
[2017-01-01] MEDS ORDERED: PREVACID15 MG PO (18:22)
[2017-01-02] VITALS: BP 153/54
[2017-01-02 06:57] LABS: BASO % 0.4 % (0.0-1.0); EOS % 0.7 % (1.0-4.0); HEMATOCRIT 30.6 % (37.0-47.0); HEMOGLOBIN 9.8 g/dl (12.0-16.0); LYMPH # 1.4 10*3/uL (1.3-4.4); LYMPH % 24.4 % (27.0-41.0); MEAN CELL VOLUME 103.4 fl (81.0-99.0); MEAN CORPUSCULAR HGB 33.1 pg (27.0-31.0); MEAN PLATELET VOLUME 9.6 fl (9.6-12.3); MONO # 0.6 10*3/uL (0.1-1.0); NEUT # 3.6 10*3/uL (2.3-7.9); NEUT % 63.1 % (47.0-73.0); PLATELET COUNT AUTOMATED 211 10*3/uL (130-400); RED BLOOD COUNT 2.96 10*6/uL (4.10-5.10); RED CELL DISTRI WIDTH 17.2 % (0-14.5); WHITE BLOOD COUNT 5.6 10*3/uL (4.8-10.8)
[2017-01-02 07:24] LABS: BUN 35 mg/dl (7-24); C-REACTIVE PROTEIN < 0.29 MG/DL (0-0.3); CARBON DIOXIDE 12 mmol/L (21-32); CHLORIDE 121 mmol/L (98-107); EST GLOM FILT AFRICAN AMERICAN 45 ml/min; GLUCOSE 66 mg/dL (65-99); POTASSIUM 3.9 mmol/L (3.5-5.1); SODIUM 142 mmol/L (136-145)
[2017-01-02 08:00] VITALS: BP 144/46
[2017-01-02 16:00] VITALS: BP 141/49
[2017-01-03] VITALS: BP 124/44
[2017-01-03 08:00] VITALS: BP 159/47
[2017-01-03 12:00] VITALS: BP 127/75
[2017-01-03 16:00] VITALS: BP 154/58
[2017-01-03 20:00] VITALS: BP 165/60
[2017-01-04] VITALS: BP 157/52
[2017-01-04 06:47] LABS: BASO % 0.4 % (0.0-1.0); EOS # 0.1 10*3/uL (0.0-0.4); EOS % 0.8 % (1.0-4.0); HEMATOCRIT 29.5 % (37.0-47.0); HEMOGLOBIN 9.4 g/dl (12.0-16.0); LYMPH # 1.6 10*3/uL (1.3-4.4); LYMPH % 19.2 % (27.0-41.0); MEAN CELL VOLUME 102.1 fl (81.0-99.0); MEAN CORPUSCULAR HGB 32.5 pg (27.0-31.0); MEAN CORPUSCULAR HGB CONC 31.9 g/dl (33.0-37.0); MEAN PLATELET VOLUME 9.1 fl (9.6-12.3); MONO # 0.7 10*3/uL (0.1-1.0); MONO % 8.9 % (3.0-9.0); NEUT # 5.9 10*3/uL (2.3-7.9); NEUT % 70.3 % (47.0-73.0); PLATELET COUNT AUTOMATED 205 10*3/uL (130-400); RED BLOOD COUNT 2.89 10*6/uL (4.10-5.10); RED CELL DISTRI WIDTH 17.2 % (0-14.5); WHITE BLOOD COUNT 8.3 10*3/uL (4.8-10.8)
[2017-01-04 07:25] LABS: POTASSIUM 3.8 mmol/L (3.5-5.1)
[2017-01-04 08:00] VITALS: BP 148/71
[2017-01-04 16:00] VITALS: BP 159/51
[2017-01-04 20:00] VITALS: BP 138/58
[2017-01-05] VITALS: BP 158/62
[2017-01-05] MEDS ORDERED: LYRICA75 M1 PO (07:50)
[2017-01-05] MEDS ORDERED: MEROPENEM1 G1 IV (07:52)
[2017-01-05 08:00] VITALS: BP 161/51
== END 2017-01-05 15:53 | disposition other institution (70) | DRG 638 ==
LOC: ED 12:55 → 5E 14:51 → EDHOLD 14:51 → 5E 15:02
PROVIDERS: Family Medicine; Internal Medicine
PROC: 02HV33Z Insertion of Infusion Device into Superior Vena Cava, Percutaneous Approach (ICD-10-PCS; principal; 2017-01-05)
DX: E11.69 Type 2 diabetes mellitus with other specified complication (principal); M86.8X6 Other osteomyelitis, lower leg; E11.21 Type 2 diabetes mellitus with diabetic nephropathy; E11.622 Type 2 diabetes mellitus with other skin ulcer; E11.40 Type 2 diabetes mellitus with diabetic neuropathy, unspecified; L97.929 Non-pressure chronic ulcer of unspecified part of left lower leg with unspecified severity; I10 Essential (primary) hypertension; E78.2 Mixed hyperlipidemia; I87.2 Venous insufficiency (chronic) (peripheral); M76.822 Posterior tibial tendinitis, left leg; B96.5 Pseudomonas (aeruginosa) (mallei) (pseudomallei) as the cause of diseases classified elsewhere; E11.51 Type 2 diabetes mellitus with diabetic peripheral angiopathy without gangrene; E66.9 Obesity, unspecified; B96.20 Unspecified Escherichia coli [E. coli] as the cause of diseases classified elsewhere; I70.202 Unspecified atherosclerosis of native arteries of extremities, left leg; B96.1 Klebsiella pneumoniae [K. pneumoniae] as the cause of diseases classified elsewhere; M65.862 Other synovitis and tenosynovitis, left lower leg; R41.0 Disorientation, unspecified; T42.6X5A Adverse effect of other antiepileptic and sedative-hypnotic drugs, initial encounter; Z90.49 Acquired absence of other specified parts of digestive tract; Z90.710 Acquired absence of both cervix and uterus; Z98.51 Tubal ligation status; Z87.440 Personal history of urinary (tract) infections; Z88.1 Allergy status to other antibiotic agents; Y92.89 Other specified places as the place of occurrence of the external cause; Z68.35 Body mass index [BMI] 35.0-35.9, adult

== ENCOUNTER → 2018-11-29 | Outpatient (CLI) | payer MEDICARE, OTHER ==
[~2018-11-29] MED LIST changes: +BONIVA150 MG PO; +LASIX40 MG PO; +LYRICA75 M1 PO; +MEROPENEM1 G1 IV; +PREVACID15 MG PO; +PROVENTIL0.09 MG/A1 INH; +VITAMIN D400 I1 PO
== END | disposition home or self-care (01) ==
LOC: ORTHO 01:44
DX: M25.551 Pain in right hip (principal); M25.552 Pain in left hip

== ENCOUNTER → 2018-12-07 | Outpatient (CLI) | payer MEDICARE, OTHER | END | disposition home or self-care (01) | LOC: CT 00:21 | DX: Z01.818 Encounter for other preprocedural examination (principal); M17.11 Unilateral primary osteoarthritis, right knee ==

== ENCOUNTER → 2019-01-06 | Outpatient (CLI) | payer MEDICARE, OTHER | END | disposition home or self-care (01) | LOC: CARD 11:45 | DX: I08.3 Combined rheumatic disorders of mitral, aortic and tricuspid valves (principal) ==

== ENCOUNTER → 2019-01-24 | Outpatient (CLI) | payer MEDICARE, OTHER ==
[~2019-01-24] VITALS: Ht 160 cm; Wt 92.1 kg
--- NOTE | ~2019-01-24 | EKG ---
[place], [place] ELECTROCARDIOGRAM REPORT NAME: RAMON VACA UNIT #: [id number] ROOM: DOCTOR: ROYCE DRAFT REPORT BIRTHDATE: [address] [facility] Test Date: 2019-01-24 Test Time: 10:56:32 Pat Name: RAMON VACA Department: Room: Gender: F Food Porter: Sabrina Momin : 1945 Requested By: JUDY ROJAS Order Number: [id number] Reading MD: Jose L Bolden MD Measurements Intervals [place] Rate: 93 P: 30 MN: 221 QRS: 7 QRSD: 145 T: 121 QT: 383 QTc: 477 Interpretive Statements Sinus rhythm with first degree AV block Left bundle branch block Electronically Signed On 01-24-2019 9:17:28 PDT by Jose L Bolden MD CM:EKGRPT:ELECTROCARDIOGRAM REPORT [id number] JUDY HARRIS DRAFT REPORT JUDY ROJAS DO
[2019-01-24 11:32] LABS: BASO % 0.7 % (0.0-1.0); EOS % 0.7 % (1.0-4.0); HEMATOCRIT 34.5 % (37.0-47.0); HEMOGLOBIN 10.8 g/dl (12.0-16.0); LYMPH # 1.4 10*3/uL (1.3-4.4); LYMPH % 35.1 % (27.0-41.0); MEAN CELL VOLUME 104.5 fl (81.0-99.0); MEAN CORPUSCULAR HGB 32.7 pg (27.0-31.0); MEAN CORPUSCULAR HGB CONC 31.3 g/dl (33.0-37.0); MEAN PLATELET VOLUME 9.5 fl (9.6-12.3); MONO # 0.2 10*3/uL (0.1-1.0); MONO % 5.9 % (3.0-9.0); NEUT # 2.3 10*3/uL (2.3-7.9); NEUT % 57.4 % (47.0-73.0); PLATELET COUNT AUTOMATED 165 10*3/uL (130-400); RED CELL DISTRI WIDTH 12.4 % (0-14.5)
[2019-01-24 11:46] LABS: BILIRUBIN NEGATIVE (NEGATIVE); BLOOD NEGATIVE (NEGATIVE); CLARITY SL CLOUDY (CLEAR); COLOR YELLOW (YELLOW); GLUCOSE NEGATIVE (NEGATIVE); KETONE NEGATIVE (NEGATIVE); LEUKO ESTERASE NEGATIVE (NEGATIVE); NITRITE NEGATIVE (NEGATIVE); PH 5.5 (5.0-9.0); SPECIFIC GRAVITY 1.025 (1.005-1.030); UROBILINOGEN 0.2 E.U./dl (0.2-1.0)
[2019-01-24 11:58] LABS: ALBUMIN 3.8 gm/dl (3.1-4.5); CREATININE 1.21 mg/dL (0.55-1.02); TOTAL PROTEIN 7.1 gm/dL (6.4-8.2)
[2019-01-24 12:13] LABS: BACTERIA TRACE; EPITHELIAL CELLS 20-30
== END | disposition home or self-care (01) ==
LOC: SDC 01-11 14:00 → LAB 06:59 → SDC 01-25 01:37 → EDSTATUS 01-27 14:00
PROVIDERS: Orthopaedic Surgery
DX: M17.0 Bilateral primary osteoarthritis of knee (principal); Z53.8 Procedure and treatment not carried out for other reasons; E11.42 Type 2 diabetes mellitus with diabetic polyneuropathy; E78.2 Mixed hyperlipidemia; E55.9 Vitamin D deficiency, unspecified; I10 Essential (primary) hypertension; Z79.899 Other long term (current) drug therapy

== ENCOUNTER → 2019-03-08 | Outpatient (CLI) | payer MEDICARE, OTHER ==
[2019-03-08 09:49] LABS: BASO % 0.7 % (0.0-1.0); EOS # 0.1 10*3/uL (0.0-0.4); EOS % 1.2 % (1.0-4.0); HEMOGLOBIN 11.3 g/dl (12.0-16.0); LYMPH # 1.4 10*3/uL (1.3-4.4); LYMPH % 23.1 % (27.0-41.0); MEAN CELL VOLUME 103.4 fl (81.0-99.0); MEAN CORPUSCULAR HGB 32.5 pg (27.0-31.0); MEAN CORPUSCULAR HGB CONC 31.4 g/dl (33.0-37.0); MEAN PLATELET VOLUME 10.2 fl (9.6-12.3); MONO # 0.4 10*3/uL (0.1-1.0); MONO % 7.2 % (3.0-9.0); NEUT # 4.1 10*3/uL (2.3-7.9); NEUT % 67.5 % (47.0-73.0); PLATELET COUNT AUTOMATED 155 10*3/uL (130-400); RED BLOOD COUNT 3.48 10*6/uL (4.10-5.10); RED CELL DISTRI WIDTH 12.4 % (0-14.5)
[2019-03-08 09:55] LABS: BILIRUBIN NEGATIVE (NEGATIVE); BLOOD NEGATIVE (NEGATIVE); CLARITY CLOUDY (CLEAR); COLOR YELLOW (YELLOW); GLUCOSE NEGATIVE (NEGATIVE); KETONE NEGATIVE (NEGATIVE); LEUKO ESTERASE 1+ (NEGATIVE); NITRITE POSITIVE (NEGATIVE); PH 5.5 (5.0-9.0); SPECIFIC GRAVITY 1.025 (1.005-1.030); UROBILINOGEN 0.2 E.U./dl (0.2-1.0)
[2019-03-08 10:18] LABS: CREATININE 1.24 mg/dL (0.55-1.02); POTASSIUM 4.8 mmol/L (3.5-5.1); TOTAL PROTEIN 7.4 gm/dL (6.4-8.2)
[2019-03-08 10:25] LABS: BACTERIA 4+
[2019-03-08 10:26] LABS: EPITHELIAL CELLS 20-30
[2019-03-08 10:27] LABS: WBC 51-100 wbc/hpf (0-5)
== END | disposition home or self-care (01) ==
LOC: LAB 08:58
PROVIDERS: Orthopaedic Surgery
DX: Z01.818 Encounter for other preprocedural examination (principal); I10 Essential (primary) hypertension; M81.0 Age-related osteoporosis without current pathological fracture; E11.42 Type 2 diabetes mellitus with diabetic polyneuropathy; Z79.899 Other long term (current) drug therapy

== ENCOUNTER → 2019-03-14 | Outpatient (CLI) | payer MEDICARE, OTHER ==
[2019-03-14 16:16] LABS: BILIRUBIN NEGATIVE (NEGATIVE); BLOOD NEGATIVE (NEGATIVE); CLARITY SL CLOUDY (CLEAR); COLOR YELLOW (YELLOW); GLUCOSE NEGATIVE (NEGATIVE); KETONE NEGATIVE (NEGATIVE); LEUKO ESTERASE NEGATIVE (NEGATIVE); NITRITE NEGATIVE (NEGATIVE); PH 5.5 (5.0-9.0); SPECIFIC GRAVITY 1.025 (1.005-1.030); UROBILINOGEN 0.2 E.U./dl (0.2-1.0)
[2019-03-14 16:27] LABS: BACTERIA TRACE; WBC 0-2 wbc/hpf (0-5)
== END | disposition home or self-care (01) ==
LOC: LAB 15:47
PROVIDERS: Physician Assistant
DX: Z01.818 Encounter for other preprocedural examination (principal); N39.0 Urinary tract infection, site not specified

== ENCOUNTER 2019-03-22 12:55 | Inpatient (IN) | payer MEDICARE, OTHER ==
[2019-03-17 18:10] VITALS: BP 152/41
[~2019-03-22] VITALS: Ht 165.1 cm; Wt 92.1 kg
[2019-03-22] VITALS (9 sets, daily range): BP systolic 100–168; BP diastolic 41–87
--- NOTE | ~2019-03-22 | EKG ---
[place], [place] ELECTROCARDIOGRAM REPORT NAME: RAMON VACA UNIT #: [id number] ROOM: [facility] DOCTOR: ROYCE DRAFT REPORT BIRTHDATE: [birth year] [facility] Test Date: 2019-03-23 Test Time: 16:28:15 Pat Name: RAMON VACA Department: Room: [facility] Gender: F Registered Health Nurse: : 1945 Requested By: COLLIN SRINIVASAN Order Number: [id number] Reading MD: Estella Adam Measurements Intervals [place] Rate: 81 P: GA: QRS: -2 QRSD: 140 T: 100 QT: 420 QTc: 488 Interpretive Statements Atrial rhythm vs. Accelerated junctional rhythm Left bundle branch block Compared to ECG 01/24/2019 10:56:32 Accelerated junctional rhythm now present First degree AV block no longer present Electronically Signed On 03-24-2019 9:03:42 PDT by Estella Adam CM:EKGRPT:ELECTROCARDIOGRAM REPORT [id number] COLLIN SRINIVASAN EPIPHANY DRAFT REPORT COLLIN SRINIVASAN
--- NOTE | ~2019-03-22 | EKG ---
[place], [place] ELECTROCARDIOGRAM REPORT NAME: RAMON VACA UNIT #: [id number] ROOM: [facility] DOCTOR: ROYCE DRAFT REPORT BIRTHDATE: [birth year] [facility] Test Date: 2019-03-23 Test Time: 17:33:30 Pat Name: RAMON VACA Department: Room: [facility] Gender: F Structural Architect: : 1945 Requested By: COLLIN SRINIVASAN Order Number: [id number] Reading MD: Estella Adam Measurements Intervals [place] Rate: 69 P: NE: QRS: -5 QRSD: 140 T: 111 QT: 426 QTc: 457 Interpretive Statements Atrial vs. Junctional rhythm Left bundle branch block Compared to ECG 01/24/2019 10:56:32 Junctional rhythm now present Sinus rhythm no longer present First degree AV block no longer present Electronically Signed On 03-24-2019 9:04:20 PDT by Estella Adam CM:EKGRPT:ELECTROCARDIOGRAM REPORT [id number] COLLIN SRINIVASAN EPIPHANY DRAFT REPORT COLLIN SRINIVASAN
--- NOTE | ~2019-03-22 | EKG ---
[place], [place] ELECTROCARDIOGRAM REPORT NAME: RAMON VACA UNIT #: [id number] ROOM: [facility] DOCTOR: ROYCE DRAFT REPORT BIRTHDATE: [birth year] [facility] Test Date: 2019-03-23 Test Time: 20:56:04 Pat Name: RAMON VACA Department: Room: [facility] Gender: F Metal Painter: Donny Pedraza : 1945 Requested By: COLLIN SRINIVASAN Order Number: [id number] Reading MD: Estella Adam Measurements Intervals [place] Rate: 77 P: 28 [place]: 205 QRS: -2 QRSD: 145 T: 104 QT: 412 QTc: 467 Interpretive Statements Atrial rhythm Left bundle branch block Compared to ECG 01/24/2019 10:56:32 First degree AV block no longer present Electronically Signed On 03-24-2019 9:05:52 PDT by Estella Adam CM:EKGRPT:ELECTROCARDIOGRAM REPORT 55 4 COLLIN SRINIVASAN EPIPHANY DRAFT REPORT COLLIN SRINIVASAN
[2019-03-23] VITALS (11 sets, daily range): BP systolic 107–147; BP diastolic 27–54
[2019-03-23 06:31] LABS: HEMATOCRIT 28.1 % (37.0-47.0); HEMOGLOBIN 8.7 g/dl (12.0-16.0); MEAN CELL VOLUME 102.9 fl (81.0-99.0); MEAN CORPUSCULAR HGB 31.9 pg (27.0-31.0); MEAN PLATELET VOLUME 10.2 fl (9.6-12.3); PLATELET COUNT AUTOMATED 163 10*3/uL (130-400); RED BLOOD COUNT 2.73 10*6/uL (4.10-5.10); RED CELL DISTRI WIDTH 12.5 % (0-14.5)
[2019-03-23 06:37] LABS: CREATININE 1.22 mg/dL (0.55-1.02); PHOSPHOROUS 3.9 mg/dL (2.5-4.9); POTASSIUM 5.5 mmol/L (3.5-5.1)
[2019-03-23 06:38] LABS: ACT PARTIAL THROMBO TIME 28.2 SECONDS (20.0-32.1)
[2019-03-23 06:45] LABS: FREE T4 1.07 ng/dl (0.76-1.46); THYROID STIM HORMONE (HS) 0.539 uIU/ml (0.358-4.75)
[2019-03-23 07:05] LABS: TOTAL CELLS COUNTED 100 #CELLS
[2019-03-23 07:06] LABS: PLATELET SUFFICIENCY NORMAL (NORMAL)
[2019-03-23 07:16] LABS: VITAMIN D, 25-HYDROXY 63.3 ng/mL (30-100)
[2019-03-23 13:53] LABS: HEMATOCRIT 26.2 % (37.0-47.0); HEMOGLOBIN 8.4 g/dl (12.0-16.0); MEAN CELL VOLUME 105.2 fl (81.0-99.0); MEAN CORPUSCULAR HGB 33.7 pg (27.0-31.0); MEAN CORPUSCULAR HGB CONC 32.1 g/dl (33.0-37.0); MEAN PLATELET VOLUME 10.1 fl (9.6-12.3); PLATELET COUNT AUTOMATED 152 10*3/uL (130-400); RED BLOOD COUNT 2.49 10*6/uL (4.10-5.10); RED CELL DISTRI WIDTH 12.9 % (0-14.5); WHITE BLOOD COUNT 9.2 10*3/uL (4.8-10.8)
[2019-03-23 14:08] LABS: ALBUMIN 2.8 gm/dl (3.1-4.5); CREATININE 1.5 mg/dL (0.55-1.02); POTASSIUM 5.1 mmol/L (3.5-5.1); TOTAL PROTEIN 5.5 gm/dL (6.4-8.2)
[2019-03-23 14:20] LABS: PLATELET SUFFICIENCY NORMAL (NORMAL); TOTAL CELLS COUNTED 100 #CELLS
== END 2019-03-23 22:55 | disposition short-term general hospital (02) | DRG 470 ==
LOC: SDC 12:55 → 5E 12:56 → ICCU 03-23 15:05
PROVIDERS: Internal Medicine; Orthopaedic Surgery; ADMIT Family Medicine
PROC: 0SRC0J9 Replacement of Right Knee Joint with Synthetic Substitute, Cemented, Open Approach (ICD-10-PCS; principal; 2019-03-22)
DX: M17.11 Unilateral primary osteoarthritis, right knee (principal); D53.9 Nutritional anemia, unspecified; M81.0 Age-related osteoporosis without current pathological fracture; Z96.651 Presence of right artificial knee joint; J45.909 Unspecified asthma, uncomplicated; E11.40 Type 2 diabetes mellitus with diabetic neuropathy, unspecified; E78.5 Hyperlipidemia, unspecified; E66.9 Obesity, unspecified; E11.51 Type 2 diabetes mellitus with diabetic peripheral angiopathy without gangrene; E11.22 Type 2 diabetes mellitus with diabetic chronic kidney disease; E11.65 Type 2 diabetes mellitus with hyperglycemia; E87.8 Other disorders of electrolyte and fluid balance, not elsewhere classified; E55.9 Vitamin D deficiency, unspecified; N18.3 Chronic kidney disease, stage 3 (moderate); I12.9 Hypertensive chronic kidney disease with stage 1 through stage 4 chronic kidney disease, or unspecified chronic kidney disease; E87.5 Hyperkalemia; Z68.33 Body mass index [BMI] 33.0-33.9, adult; Z90.49 Acquired absence of other specified parts of digestive tract; Z90.710 Acquired absence of both cervix and uterus; Z98.51 Tubal ligation status; Z80.8 Family history of malignant neoplasm of other organs or systems; Z82.49 Family history of ischemic heart disease and other diseases of the circulatory system; Z48.89 Encounter for other specified surgical aftercare; Z88.0 Allergy status to penicillin

== ENCOUNTER → 2019-05-20 | Outpatient (CLI) | payer MEDICARE, OTHER | END | disposition home or self-care (01) | LOC: ORTHO 09:40 | DX: Z96.651 Presence of right artificial knee joint (principal) ==

== ENCOUNTER 2019-06-08 14:21 | Emergency (ER) | payer MEDICARE, OTHER ==
[~2019-06-08] VITALS: Ht 162.5 cm; Wt 92.1 kg
[2019-06-08 14:29] VITALS: BP 191/49
[2019-06-08 15:48] LABS: BASO % 0.6 % (0.0-1.0); EOS % 0.8 % (1.0-4.0); HEMATOCRIT 35.9 % (37.0-47.0); HEMOGLOBIN 11.5 g/dl (12.0-16.0); LYMPH # 1.8 10*3/uL (1.3-4.4); LYMPH % 36.6 % (27.0-41.0); MEAN CELL VOLUME 100.3 fl (81.0-99.0); MEAN CORPUSCULAR HGB 32.1 pg (27.0-31.0); MONO # 0.3 10*3/uL (0.1-1.0); MONO % 6.6 % (3.0-9.0); NEUT # 2.7 10*3/uL (2.3-7.9); NEUT % 55.2 % (47.0-73.0); PLATELET COUNT AUTOMATED 179 10*3/uL (130-400); RED BLOOD COUNT 3.58 10*6/uL (4.10-5.10); RED CELL DISTRI WIDTH 12.5 % (0-14.5); WHITE BLOOD COUNT 4.9 10*3/uL (4.8-10.8)
[2019-06-08 16:08] LABS: ALBUMIN 3.6 gm/dl (3.1-4.5); ALKALINE PHOSPHATASE 55 U/L (45-117); BUN 22 mg/dl (7-24); CHLORIDE 115 mmol/L (98-107); CREATININE 1.08 mg/dL (0.55-1.02); POTASSIUM 4.8 mmol/L (3.5-5.1); SGOT/AST 16 IU/L (3-35); SGPT/ALT 20 U/L (12-78); SODIUM 143 mmol/L (136-145); TOTAL PROTEIN 7.2 gm/dL (6.4-8.2)
[2019-06-08] MEDS ORDERED: XARE15TA PO (16:28)
== END 2019-06-08 16:46 | disposition home or self-care (01) ==
LOC: ED 14:21
PROVIDERS: Nurse Practitioner Family
DX: I82.431 Acute embolism and thrombosis of right popliteal vein (principal); I82.451 Acute embolism and thrombosis of right peroneal vein; I82.441 Acute embolism and thrombosis of right tibial vein; I10 Essential (primary) hypertension; E11.9 Type 2 diabetes mellitus without complications; K21.9 Gastro-esophageal reflux disease without esophagitis; Z87.442 Personal history of urinary calculi; Z88.0 Allergy status to penicillin; Z88.1 Allergy status to other antibiotic agents; Z79.899 Other long term (current) drug therapy; Z96.651 Presence of right artificial knee joint; Z90.710 Acquired absence of both cervix and uterus; Z90.49 Acquired absence of other specified parts of digestive tract

== ENCOUNTER 2019-09-10 10:22 | Emergency (ER) | payer MEDICARE, OTHER ==
[~2019-09-10] VITALS: Ht 162.5 cm; Wt 94.8 kg
[~2019-09-10 10:22] MED LIST changes: +XARE15TA PO
[2019-09-10 11:15] LABS: BASO % 0.8 % (0.0-1.0); EOS # 0.1 10*3/uL (0.0-0.4); EOS % 1.4 % (1.0-4.0); HEMATOCRIT 33.4 % (37.0-47.0); HEMOGLOBIN 10.8 g/dl (12.0-16.0); LYMPH # 1.2 10*3/uL (1.3-4.4); LYMPH % 34.3 % (27.0-41.0); MEAN CELL VOLUME 96.5 fl (81.0-99.0); MEAN CORPUSCULAR HGB 31.2 pg (27.0-31.0); MEAN CORPUSCULAR HGB CONC 32.3 g/dl (33.0-37.0); MEAN PLATELET VOLUME 10.3 fl (9.6-12.3); MONO # 0.3 10*3/uL (0.1-1.0); MONO % 8.4 % (3.0-9.0); NEUT % 55.1 % (47.0-73.0); PLATELET COUNT AUTOMATED 152 10*3/uL (130-400); RED BLOOD COUNT 3.46 10*6/uL (4.10-5.10); RED CELL DISTRI WIDTH 12.2 % (0-14.5); WHITE BLOOD COUNT 3.6 10*3/uL (4.8-10.8)
[2019-09-10 11:32] LABS: ALBUMIN 3.2 gm/dl (3.1-4.5); ALKALINE PHOSPHATASE 37 U/L (45-117); BUN 26 mg/dl (7-24); CHLORIDE 111 mmol/L (98-107); POTASSIUM 4.4 mmol/L (3.5-5.1); SGOT/AST 15 IU/L (3-35); SGPT/ALT 17 U/L (12-78); SODIUM 142 mmol/L (136-145); TOTAL PROTEIN 6.7 gm/dL (6.4-8.2)
[2019-09-10 11:35] LABS: TROPONIN I < 0.015 ng/ml (<0.045)
[2019-09-10 11:35] LABS: BILIRUBIN NEGATIVE (NEGATIVE); BLOOD TRACE-INTACT (NEGATIVE); CLARITY SL CLOUDY (CLEAR); COLOR YELLOW (YELLOW); GLUCOSE NEGATIVE (NEGATIVE); KETONE NEGATIVE (NEGATIVE); LEUKO ESTERASE 2+ (NEGATIVE); NITRITE POSITIVE (NEGATIVE); RBC 0-2 rbc/hpf (0-2); UROBILINOGEN < 0.2 E.U./dl (0.2-1.0)
[2019-09-10 11:36] LABS: BACTERIA 2+; WBC 16-20 wbc/hpf (0-5)
[2019-09-10 11:59] VITALS: BP 148/68
[2019-09-10] MEDS ORDERED: LEVOFLOXACIN250 M2 PO (12:41)
== END 2019-09-10 13:00 | disposition home or self-care (01) ==
LOC: ED 10:22
PROVIDERS: Emergency Medicine
DX: N39.0 Urinary tract infection, site not specified (principal); R05 Cough; I10 Essential (primary) hypertension; E11.9 Type 2 diabetes mellitus without complications; K21.9 Gastro-esophageal reflux disease without esophagitis; F41.9 Anxiety disorder, unspecified; Z88.0 Allergy status to penicillin; Z88.8 Allergy status to other drugs, medicaments and biological substances; Z79.899 Other long term (current) drug therapy; Z90.49 Acquired absence of other specified parts of digestive tract; Z90.710 Acquired absence of both cervix and uterus

== ENCOUNTER 2019-09-16 12:12 | Emergency (ER) | payer MEDICARE, OTHER ==
[~2019-09-16] VITALS: Ht 162.5 cm
[~2019-09-16 12:12] MED LIST changes: +LEVOFLOXACIN250 M2 PO
[2019-09-16 13:13] LABS: BASO % 0.5 % (0.0-1.0); EOS # 0.1 10*3/uL (0.0-0.4); HEMATOCRIT 34.3 % (37.0-47.0); LYMPH # 1.2 10*3/uL (1.3-4.4); LYMPH % 19.5 % (27.0-41.0); MEAN CELL VOLUME 95.5 fl (81.0-99.0); MEAN CORPUSCULAR HGB 30.9 pg (27.0-31.0); MEAN CORPUSCULAR HGB CONC 32.4 g/dl (33.0-37.0); MEAN PLATELET VOLUME 10.3 fl (9.6-12.3); MONO # 0.4 10*3/uL (0.1-1.0); MONO % 7.1 % (3.0-9.0); NEUT # 4.4 10*3/uL (2.3-7.9); NEUT % 71.7 % (47.0-73.0); PLATELET COUNT AUTOMATED 147 10*3/uL (130-400); RED BLOOD COUNT 3.59 10*6/uL (4.10-5.10); RED CELL DISTRI WIDTH 12.4 % (0-14.5); WHITE BLOOD COUNT 6.1 10*3/uL (4.8-10.8)
[2019-09-16 13:29] LABS: ACT PARTIAL THROMBO TIME 45.6 SECONDS (20.0-32.1); INTERNATIONAL NORM RATIO 1.6 (2.0-3.5)
[2019-09-16 13:31] LABS: ALBUMIN 3.4 gm/dl (3.1-4.5); ALKALINE PHOSPHATASE 41 U/L (45-117); BUN 42 mg/dl (7-24); CHLORIDE 111 mmol/L (98-107); CPK 95 U/L (26-192); CREATININE 1.44 mg/dL (0.55-1.02); POTASSIUM 4.1 mmol/L (3.5-5.1); SGOT/AST 19 IU/L (3-35); SGPT/ALT 21 U/L (12-78); SODIUM 142 mmol/L (136-145); TOTAL PROTEIN 7.1 gm/dL (6.4-8.2)
[2019-09-16 13:32] LABS: TROPONIN I < 0.015 ng/ml (<0.045)
[2019-09-16 13:51] LABS: BILIRUBIN NEGATIVE (NEGATIVE); BLOOD 3+ (NEGATIVE); CLARITY SL CLOUDY (CLEAR); COLOR YELLOW (YELLOW); GLUCOSE NEGATIVE (NEGATIVE); KETONE NEGATIVE (NEGATIVE); LEUKO ESTERASE NEGATIVE (NEGATIVE); NITRITE NEGATIVE (NEGATIVE); UROBILINOGEN 0.2 E.U./dl (0.2-1.0)
[2019-09-16 13:54] LABS: RBC 41-50 rbc/hpf (0-2)
[2019-09-16 13:55] LABS: BACTERIA 2+
[2019-09-16 16:20] VITALS: BP 146/68
== END 2019-09-16 16:33 | disposition short-term general hospital (02) ==
LOC: ED 12:12
PROVIDERS: Emergency Medicine
DX: D49.6 Neoplasm of unspecified behavior of brain (principal); E11.9 Type 2 diabetes mellitus without complications; E78.5 Hyperlipidemia, unspecified; I10 Essential (primary) hypertension; K21.9 Gastro-esophageal reflux disease without esophagitis; F41.9 Anxiety disorder, unspecified; Z79.899 Other long term (current) drug therapy; Z79.2 Long term (current) use of antibiotics; Z88.0 Allergy status to penicillin; Z88.8 Allergy status to other drugs, medicaments and biological substances; Z79.4 Long term (current) use of insulin

== ENCOUNTER 2019-10-20 12:51 | Emergency (ER) | payer MEDICARE, OTHER ==
[~2019-10-20] VITALS: Ht 162.5 cm; Wt 89.4 kg
[2019-10-20 12:58] VITALS: BP 133/39
[2019-10-20 13:23] LABS: BASO % 0.3 % (0.0-1.0); EOS # 0.1 10*3/uL (0.0-0.4); HEMATOCRIT 32.9 % (37.0-47.0); LYMPH # 1.1 10*3/uL (1.3-4.4); LYMPH % 10.9 % (27.0-41.0); MEAN CELL VOLUME 93.2 fl (81.0-99.0); MEAN CORPUSCULAR HGB CONC 34.3 g/dl (33.0-37.0); MEAN PLATELET VOLUME 10.9 fl (9.6-12.3); MONO % 9.5 % (3.0-9.0); NEUT # 8.1 10*3/uL (2.3-7.9); NEUT % 77.4 % (47.0-73.0); PLATELET COUNT AUTOMATED 232 10*3/uL (130-400); RED BLOOD COUNT 3.53 10*6/uL (4.10-5.10); RED CELL DISTRI WIDTH 14.1 % (0-14.5); WHITE BLOOD COUNT 10.5 10*3/uL (4.8-10.8)
[2019-10-20 13:33] LABS: ACT PARTIAL THROMBO TIME 28.1 SECONDS (20.0-32.1)
[2019-10-20 13:37] LABS: ALBUMIN 2.9 gm/dl (3.1-4.5); ALKALINE PHOSPHATASE 50 U/L (45-117); BUN 81 mg/dl (7-24); CHLORIDE 97 mmol/L (98-107); CREATININE 1.38 mg/dL (0.55-1.02); LIPASE 165 U/L (73-393); POTASSIUM 4.8 mmol/L (3.5-5.1); SGOT/AST 30 IU/L (3-35); SGPT/ALT 35 U/L (12-78); SODIUM 131 mmol/L (136-145); TOTAL PROTEIN 7.1 gm/dL (6.4-8.2)
[2019-10-20 13:46] LABS: TROPONIN I < 0.015 ng/ml (<0.045)
[2019-10-20 13:54] LABS: BILIRUBIN NEGATIVE (NEGATIVE); BLOOD 3+ (NEGATIVE); CLARITY TURBID (CLEAR); COLOR YELLOW (YELLOW); GLUCOSE NEGATIVE (NEGATIVE); KETONE NEGATIVE (NEGATIVE); LEUKO ESTERASE 3+ (NEGATIVE); NITRITE POSITIVE (NEGATIVE); PH 8.5 (5.0-9.0); UROBILINOGEN 0.2 E.U./dl (0.2-1.0)
[2019-10-20 13:55] LABS: BACTERIA 4+; WBC TNTC wbc/hpf (0-5)
== END 2019-10-20 13:47 | disposition short-term general hospital (02) ==
LOC: ED 12:51
PROVIDERS: Emergency Medicine
DX: I63.9 Cerebral infarction, unspecified (principal); I10 Essential (primary) hypertension; E11.9 Type 2 diabetes mellitus without complications; K21.9 Gastro-esophageal reflux disease without esophagitis; Z87.442 Personal history of urinary calculi